=== PATIENT | female | born 1980 | race Caucasian/White ===

== ENCOUNTER 2018-10-16 14:52 | Emergency (ER) | payer OTHER ==
[2018-10-16 14:58] VITALS: BP 126/78; PULSE 72; TEMP 98.4; BMI 29.5
--- NOTE | 2018-10-16 17:36 | PDOC ---
History of Present Illness - General Chief Complaint: Revisit,Wound Recheck Stated Complaint: PAIN Time Seen by Provider: 10/16/18 16:22 History Source: Patient Exam Limitations: No Limitations - History of Present Illness Initial Comments: 10/16/18 17:34 38 year old woman A1 with history of gestational HTN, anemia and keloids presents with blue strings from the vagina and L sided lower abdominal pain after an uncomplicated on 09/24/18. The patient reports that during her C section an IUD was placed. She has bilaterally intermittent lower abdominal pain rated 7/10 that resolved on the R side after 2 weeks, but has remained on the L lower abdomen worse with sitting forward. The patient noted that the pain increased yesterday and went to a max of 9/10. Since the patient has continued to have vaginal spotting and bleeding. Today at 1100 the patient noted blue strings coming from her vagina and multiple blood clots. The patient denied vaginal pain or discharge. The patient denies nausea, vomiting, diarrhea, constipation, dysuria, hematuria, fevers, headaches, chest pain or shortness of breath. She has no other ocmplaints at bedside. Past History - Past Medical History Allergies/Adverse Reactions: Allergies Allergy/AdvReac Type Severity Reaction Status Date / Time No Known Allergies Allergy Verified 10/16/18 14:55 Home Medications: Ambulatory Orders Aspirin [Adult Aspirin] 81 mg PO DAILY 09/23/18 Omeprazole 40 mg PO PRN 09/23/18 Valacyclovir HCl [Valtrex] 500 mg PO BID 09/23/18 Asthma: Yes COPD: No - Surgical History Cholecystectomy: Yes - Suicide/Smoking/Psychosocial Hx Smoking History: Former smoker Have you smoked in the past 12 months: Yes If you are a former smoker, when did you quit?: 10 months ago Information on smoking cessation initiated: No Review of Systems - Review of Systems Able to Perform ROS?: Yes Is the patient limited Swedish proficient: No Constitutional: No: Chills, Diaphoresis, Fever HEENTM: No: Tinnitus Respiratory: No: Cough, Orthopnea, Shortness of Breath Cardiac (ROS): No: Chest Pain, Lightheadedness, Palpitations ABD/GI: No: Constipated, Diarrhea, Nausea, Vomiting : No: Burning, Dysuria, Hematuria, Incontinence Musculoskeletal: No: Back Pain Neurological: No: Headache, Numbness, Tingling Hematologic/Lymphatic: Yes: See HPI, Blood Clots *Physical Exam - Vital Signs Last Vital Signs Temp Pulse Resp BP Pulse Ox 98.4 F 72 18 126/78 100 10/16/18 14:56 10/16/18 14:56 10/16/18 14:56 10/16/18 14:56 10/16/18 14:56 - Physical Exam Comments: 10/16/18 17:32 GENERAL: Awake, alert, and fully oriented, in no acute distress HEAD: No signs of trauma, normocephalic, atraumatic EYES: EOMI, sclera anicteric, conjunctiva clear ENT: oropharynx clear without exudates. Moist mucosa NECK: Normal ROM, supple LUNGS: No distress, speaks full sentences, clear to auscultation bilaterally HEART: Regular rate and rhythm, normal S1 and S2, no murmurs, rubs or gallops, peripheral pulses normal and equal bilaterally. ABDOMEN: Soft, slight tenderness on LLQ, normoactive bowel sounds. No guarding , no rebound. Keloid scarring on the incision site, incision, well healed, dry EXTREMITIES : Normal inspection, Normal range of motion, no edema. No clubbing or cyanosis. NEUROLOGICAL: Cranial nerves II through XII grossly intact. Normal speech, normal gait, no focal sensorimotor deficits SKIN: Warm, Dry, normal turgor, no rashes or lesions noted PELVIC: significant blood clots with expulsion of IUD, long proline blue sutures attached to end of IUD Moderate Sedation - Procedure Monitoring Vital Signs: Procedure Monitoring Vital Signs Temperature 98.4 F 10/16/18 14:56 Pulse Rate 72 10/16/18 14:56 Respiratory Rate 18 10/16/18 14:56 Blood Pressure 126/78 10/16/18 14:56 O2 Sat by Pulse Oximetry (%) 100 10/16/18 14:56 ED Treatment Course - LABORATORY CBC & Chemistry Diagram: 10/16/18 17:54 Medical Decision Making - Medical Decision Making 10/16/18 17:35 38 year old woman A1 with history of gestational HTN, anemia and keloids presents with blue strings from the vagina and L sided lower abdominal pain after an uncomplicated on 09/24/18. The patient reports that during her C section an IUD was placed. She has bilaterally intermittent lower abdominal pain rated 7/10 that resolved on the R side after 2 weeks, but has remained on the L lower abdomen worse with sitting forward. The patient noted that the pain increased yesterday and went to a max of 9/10. Since the patient has continued to have vaginal spotting and bleeding. Today at 1100 the patient noted blue strings coming from her vagina and multiple blood clots. The patient denied vaginal pain or discharge. The patient denies nausea, vomiting, diarrhea, constipation, dysuria, hematuria, fevers, headaches, chest pain or shortness of breath. She has no other ocmplaints at bedside. ED Course: Pelvic exam with removal of IUD Will check cbc for anemia Advised patient contact OBGYN tomorrow AM CBC: within normal limits Patient with apparent IUD failure/misplacement. The patient was informed to obstain from sexual intercourse until evaluated from her OBGYN. As labs are stable and patient notes relief of symptoms with IUD removal. Will have patient see her OBGYN within 1-2 days. Patient stable for discharge. Informed of all lab and imaging results. Given follow up instructions and strict return precautions. Patient expressed understanding and agree to plan. *DC/Admit/Observation/Transfer Diagnosis at time of Disposition: IUD failure, IUD mechanical complication - Discharge Dispostion Disposition: HOME Condition at time of disposition: Stable Decision to Admit order: No - Referrals Referrals: Kade Inman MD [Staff Physician] - - Patient Instructions Additional Instructions: You were seen in the ED for complaints of vaginal clots with extrusion of sutures from the vagina. In the ED you were evaluated with pelvic exam and labwork. You had explusion of the IUD during pelvic exam and your Hb was within normal limits There does not appear to be an acute need for immediate hospitalization. You are advised to follow up with your Primary Care Physician within 1 week. Please call your OBGYN to schedule a follow up appointment within 1-2 days. If you are unable to see your OBGYN within 2 days you have been given a referral to OBGYN and you are advised to return to the ED if you are unable to schedule appropriate follow up. Please refrain from sexual intercourse until assessed by your OBGYN. Return to the ED immediately if you experience worsening vaginal bleeding with clots, worsening abdominal pain, fevers, nausea, vomiting, blood in the urine or stool, shortness of breath or chest pain - Post Discharge Activity
--- NOTE | 2018-10-16 17:46 | PDOC ---
Attending Attestation - Resident Resident Name: Shanna Bond - ED Attending Attestation I have performed the following: I have examined & evaluated the patient, The case was reviewed & discussed with the resident, I agree w/resident's findings & plan - HPI HPI: 10/16/18 17:49 [place] 38 YOF with h/o anemia and gestational HTN. presenting with vaginal bleeding/clots and Abdominal discomfort and blue strings hanging from vagina. s/p C section 09/24, uncomplicated at [facility]. No n/v/d, f/c, cp/sob. No urinary sx or hematuria. - Physicial Exam PE: 10/16/18 17:46 NAD, well appearing, PERRL, EOMI, MMM, nl conjunctiva, anicteric; neck supple. lungs clear, RRR, abdomen soft nontender. FERRER x4. No peripheral edema. normal color for ethnicity, WWP. pelvic exam with resident, with prolene strings from IUD at cervical os. +blood clots in vaginal vault. no tenderness. - Medical Decision Making 10/16/18 17:49 hpi as documented VS wnl CBC with known anemia, no other derangements. pelvic exam with resident, IUD visualized with prolene strings, removed due to bleeding and discomfort. no adnexal tenderness or cervical abnormalities. immediate relief. abdomen soft and NT. avoid intercourse/sex given IUD removed, as precaution for control. but as natural conception Pt to be discharged in stable condition. Patient and family made aware of impression and plan, return precautions discussed (including but not limited to worsening pain or symptoms), fevers, or signs of infection, chest pain, respiratory distress, inability to tolerate oral intake, dehydration, syncope, or neurologic changes). Follow up with PMD and/or OB specialist as recommended, follow up information provided. continue with supportive care, avoid triggers and precipitants. All questions answered to patient's satisfaction and expressed understanding and comfort with this. 10/16/18 18:18
[2018-10-16 18:00] LABS: BASO % 1.3 % (0-2.0); EOS % 3.3 % (0-4.5); HEMATOCRIT 31.5 % (32.4-45.2); HEMOGLOBIN 10.5 GM/dL (10.7-15.3); LYMPH % 33.1 % (8-40); MCH 22.9 pg (25.7-33.7); MCHC 33.3 g/dl (32.0-36.0); MEAN CELL VOLUME 68.8 fl (80-96); MEAN PLT VOLUME 9.1 fl (7.5-11.1); MONO % 11.4 % (3.8-10.2); NEUT % 50.9 % (42.8-82.8); PLATELET COUNT 328 K/MM3 (134-434); RBC 4.59 M/mm3 (3.60-5.2); RDW 23.6 % (11.6-15.6); WHITE BLOOD COUNT 4.1 K/mm3 (4.0-10.0)
[2018-10-16 18:33] LABS: ANISOCYTOSIS 2+
== END 2018-10-16 18:59 | disposition home or self-care (01) ==
LOC: JER 14:52
PROC: 0UPD7HZ Removal of Contraceptive Device from Uterus and Cervix, Via Natural or Artificial Opening (ICD-10-PCS; principal; 2018-10-16)
DX: O90.89 Other complications of the puerperium, not elsewhere classified (principal); T83.89XA Other specified complication of genitourinary prosthetic devices, implants and grafts, initial encounter
CPT/HCPCS: 36415; 85025; 99281-25

== ENCOUNTER 2020-12-15 10:09 | Emergency (ER) | payer OTHER ==
[2020-12-15 10:32] VITALS: BP 147/106; PULSE 88; TEMP 98.8; BMI 33.3
[2020-12-15] MEDS ORDERED: ONDANSETRON 4 MG/2 ML VIAL IVPUSH ONE (11:10)
[2020-12-15] MEDS ORDERED: SODIUM CHLORIDE 0.9% 500 ML INFUS.BAG IV ONE (11:10)
[2020-12-15] MEDS ORDERED: ACETAMINOPHEN 1000 MG/100 ML VIAL (NON FORMULARY) IVPB ONE (11:10)
[2020-12-15] MEDS ORDERED: ACETAMINOPHEN INJECTION 100 ML IVPB ONE (11:27)
[2020-12-15] MEDS ORDERED: ONDANSETRON 4 MG/2 ML VIAL ONE (11:27)
[2020-12-15 12:17] LABS: BASO % 0.8 % (0-2.0); EOS % 0.3 % (0-4.5); HEMATOCRIT 27.7 % (32.4-45.2); HEMOGLOBIN 8.4 GM/dL (10.7-15.3); LYMPH % 14.9 % (8-40); MCHC 30.5 g/dl (32.0-36.0); MEAN CELL VOLUME 57.6 fl (80-96); MEAN PLT VOLUME 8.9 fl (7.5-11.1); MONO % 5.6 % (3.8-10.2); NEUT % 78.4 % (42.8-82.8); PLATELET COUNT 316 K/MM3 (134-434); RDW 19.7 % (11.6-15.6); WHITE BLOOD COUNT 8.3 K/mm3 (4.0-10.0)
[2020-12-15 12:22] LABS: MCH 17.6 pg (25.7-33.7)
[2020-12-15 12:26] LABS: EPI CELLS 11 /uL (0-25.1); HCG,QUALITATIVE URINE Negative; HYALINE CASTS 2 /uL (0-3.1); URINE APPEARANCE CLEAR; URINE BACTERIA 629 /uL (0-1359); URINE BILIRUBIN NEGATIVE (NEGATIVE); URINE COLOR YELLOW; URINE GLUCOSE (UA) NEGATIVE (NEGATIVE); URINE KETONE NEGATIVE (NEGATIVE); URINE LEUK ESTERASE NEGATIVE (NEGATIVE); URINE NITRITE NEGATIVE (NEGATIVE); URINE PROTEIN TRACE (NEGATIVE); URINE RBC 11 /uL (0-23.9); URINE UROBILINOGEN 0.2 mg/dL (0.2-1.0); URINE WBC 11 /uL (0-25.8)
[2020-12-15 12:35] LABS: POTASSIUM 4.4 mmol/L (3.5-5.1)
[2020-12-15 12:38] LABS: CALCIUM 9.1 mg/dL (8.5-10.1)
[2020-12-15 12:39] LABS: ALBUMIN 3.8 g/dl (3.4-5.0); BLOOD UREA NITROGEN 10.1 mg/dL (7-18)
[2020-12-15 12:42] LABS: CREATININE 0.8 mg/dL (0.55-1.3)
[2020-12-15 12:43] LABS: TOT PROT 7.4 g/dl (6.4-8.2)
[2020-12-15 12:48] LABS: BILIRUBIN,TOTAL 0.9 mg/dL (0.2-1)
[2020-12-15 12:53] LABS: ANISOCYTOSIS 3+; MACROCYTOSIS 0; OVALOCYTE 1+; PLATELET ESTIMATE NORMAL
== END 2020-12-15 15:03 | disposition home or self-care (01) ==
LOC: JER 10:09 → JERFT 10:09
PROC: 3E0333Z Introduction of Anti-inflammatory into Peripheral Vein, Percutaneous Approach (ICD-10-PCS; principal; 2020-12-15)
PROC: 3E033GC Introduction of Other Therapeutic Substance into Peripheral Vein, Percutaneous Approach (ICD-10-PCS; 2020-12-15)
DX: R10.32 Left lower quadrant pain (principal)
CPT/HCPCS: 36415; 74176-TC; 80053; 81003; 84703; 85025; 87086; 99284-25; J0131

== ENCOUNTER 2021-03-15 09:38 | Emergency (ER) | payer OTHER ==
[2021-03-15 09:51] VITALS: BP 141/82; PULSE 84; TEMP 98.6; BMI 31.8
[2021-03-15] MEDS ORDERED: FAMOTIDINE 20 MG TABLET PO ONE (10:47)
[2021-03-15 10:50] LABS: EPI CELLS 27 /uL (0-25.1); HYALINE CASTS 2 /uL (0-3.1); PH,URINE 6.5 (5.0-8.0); URINE APPEARANCE CLOUDY; URINE BACTERIA 1685 /uL (0-1359); URINE BILIRUBIN NEGATIVE (NEGATIVE); URINE COLOR YELLOW; URINE GLUCOSE (UA) NEGATIVE (NEGATIVE); URINE KETONE TRACE (NEGATIVE); URINE LEUK ESTERASE NEGATIVE (NEGATIVE); URINE NITRITE NEGATIVE (NEGATIVE); URINE PROTEIN 1+ (NEGATIVE); URINE RBC 36 /uL (0-23.9); URINE WBC 14 /uL (0-25.8)
[2021-03-15] MEDS ORDERED: FAMOTIDINE 20 MG TABLET ONE (10:51)
== END 2021-03-15 12:30 | disposition home or self-care (01) ==
LOC: JER 09:38
DX: R10.2 Pelvic and perineal pain (principal)
CPT/HCPCS: 76817-TC; 81003; 82962; 87086; 99284-25

== ENCOUNTER 2021-04-06 15:27 | Inpatient (IN) | payer OTHER ==
[2021-04-06] MEDS ORDERED: SODIUM CHLORIDE 1,000 ML IV STA (17:05)
[2021-04-06 18:06] LABS: BASO % 0.4 % (0-2.0); EOS % 0.2 % (0-4.5); HEMATOCRIT 38.8 % (32.4-45.2); HEMOGLOBIN 13.2 GM/dL (10.7-15.3); LYMPH % 7.2 % (8-40); MCH 25.9 pg (25.7-33.7); MEAN CELL VOLUME 76.3 fl (80-96); MEAN PLT VOLUME 8.6 fl (7.5-11.1); MONO % 3.9 % (3.8-10.2); NEUT % 88.3 % (42.8-82.8); PLATELET COUNT 218 10^3/uL (134-434); RBC 5.09 M/mm3 (3.60-5.2); RDW 14.1 % (11.6-15.6); WHITE BLOOD COUNT 16.2 K/mm3 (4.0-10.0)
[2021-04-06] MEDS ORDERED: ONDANSETRON 4 MG/2 ML VIAL IVPUSH ONE (18:09)
[2021-04-06] MEDS ORDERED: ACETAMINOPHEN 1000 MG/100 ML VIAL (NON FORMULARY) IVPB ONE (18:09)
[2021-04-06] MEDS ORDERED: ONDANSETRON 4 MG/2 ML VIAL ONE (18:11)
[2021-04-06] MEDS ORDERED: ACETAMINOPHEN INJECTION 100 ML IVPB ONE (18:11)
[2021-04-06 18:13] LABS: INR 0.92 (0.83-1.09); PROTHROMBIN TIME (PATIENT) 11.3 SEC (9.7-13.0)
[2021-04-06 18:32] LABS: ALBUMIN 3.6 g/dl (3.4-5.0); BLOOD UREA NITROGEN 6.9 mg/dL (7-18); CALCIUM 9.3 mg/dL (8.5-10.1)
[2021-04-06 18:35] LABS: CREATININE 0.6 mg/dL (0.55-1.3)
[2021-04-06 18:37] LABS: BILIRUBIN,TOTAL 0.3 mg/dL (0.2-1); TOT PROT 7.5 g/dl (6.4-8.2)
[2021-04-06 18:59] LABS: EPI CELLS 20 /uL (0-25.1); HYALINE CASTS 2 /uL (0-3.1); PH,URINE 5.5 (5.0-8.0); URINE APPEARANCE CLEAR; URINE BACTERIA 1320 /uL (0-1359); URINE BILIRUBIN NEGATIVE (NEGATIVE); URINE COLOR YELLOW; URINE GLUCOSE (UA) NEGATIVE (NEGATIVE); URINE KETONE 2+ (NEGATIVE); URINE LEUK ESTERASE NEGATIVE (NEGATIVE); URINE NITRITE NEGATIVE (NEGATIVE); URINE PROTEIN 1+ (NEGATIVE); URINE RBC 46 /uL (0-23.9); URINE UROBILINOGEN 0.2 mg/dL (0.2-1.0); URINE WBC 26 /uL (0-25.8)
[2021-04-06] MEDS ORDERED: morphine CARPU-JECT 2 MG/1 ML DISP.SYRIN IVPUSH ONE ×2 (19:40→21:18)
[2021-04-06] MEDS ORDERED: MORPHINE SULFATE 2 MG/ML VIAL ONE ×2 (19:53→21:29)
[2021-04-06] MEDS ORDERED: CEFTRIAXONE 1 GM in DEXTROSE 5%-WATER - 100 ML IVPB ONE (21:05)
[2021-04-06] MEDS ORDERED: LACTATED RINGERS SOLUTION 1,000 ML/1,000 ML INFUS.BAG IV SCH (21:15)
[2021-04-06] MEDS ORDERED: CEFTRIAXONE 1 GM/50 ML BAG ONE (21:18)
[2021-04-07] MEDS ORDERED: ACETAMINOPHEN 1000 MG/100 ML VIAL (NON FORMULARY) IVPB PRN (02:33)
[2021-04-07 03:12] VITALS: BMI 34.7
[2021-04-07 07:53] LABS: BASO % 0.8 % (0-2.0); EOS % 0.5 % (0-4.5); HEMATOCRIT 34.5 % (32.4-45.2); HEMOGLOBIN 11.6 GM/dL (10.7-15.3); LYMPH % 14.7 % (8-40); MCH 25.9 pg (25.7-33.7); MCHC 33.7 g/dl (32.0-36.0); MEAN PLT VOLUME 8.6 fl (7.5-11.1); MONO % 7.6 % (3.8-10.2); NEUT % 76.4 % (42.8-82.8); PLATELET COUNT 200 10^3/uL (134-434); RBC 4.49 M/mm3 (3.60-5.2); RDW 13.9 % (11.6-15.6); WHITE BLOOD COUNT 11.2 K/mm3 (4.0-10.0)
[2021-04-07 08:19] LABS: CALCIUM 8.8 mg/dL (8.5-10.1); MAGNESIUM 1.8 mg/dL (1.8-2.4)
[2021-04-07 08:22] LABS: CREATININE 0.6 mg/dL (0.55-1.3); PHOSPHOROUS 4.1 mg/dL (2.5-4.9)
[2021-04-07 08:24] LABS: BILIRUBIN,TOTAL 0.5 mg/dL (0.2-1)
[2021-04-07] MEDS ORDERED: SODIUM CHLORIDE 1,000 ML IV SCH (09:15)
[2021-04-07] MEDS ORDERED: CEFTRIAXONE 1 GM in DEXTROSE 5%-WATER - 50 ML IVPB SCH (10:00)
[2021-04-07] MEDS ORDERED: DEXTROSE 5%-WATER - 50 ML IVPB ONE (10:12)
[2021-04-07] MEDS ORDERED: cefTRIAXone SODIUM 1 GM VIAL ONE (10:12)
[2021-04-07 14:41] VITALS: BP 132/80; PULSE 71; TEMP 97.6
[2021-04-07] MEDS ORDERED: DOCUSATE SODIUM 100 MG CAPSULE (FP) PO SCH (22:00)
[2021-04-08] MEDS ORDERED: PRENATAL VITAMINS W/ FOLIC ACID TABLET (FP) PO SCH (10:00)
== END 2021-04-07 15:42 | disposition home or self-care (01) | DRG 566 ==
LOC: JER 15:27 → JERBED 20:55 → J7W 04-07 02:07
PROVIDERS: ADMIT Internal Medicine; ATTEND Nurse Practitioner Acute Care
DX: O23.01 Infections of kidney in pregnancy, first trimester (principal); N13.6 Pyonephrosis; O24.410 Gestational diabetes mellitus in pregnancy, diet controlled; Z3A.13 13 weeks gestation of pregnancy; D50.9 Iron deficiency anemia, unspecified; Z98.84 Bariatric surgery status
CPT/HCPCS: 36415; 76775-TC; 76801-TC; 80053; 81003; 83735; 84100; 84702; 85025; 85610; 87040; 87086; 93005; 93010; 99285-25; C9803; J0131; U0003; U0005

== ENCOUNTER 2021-10-05 06:30 | Inpatient (IN) | payer OTHER ==
[2021-10-05 07:47] VITALS: BMI 37.3
[2021-10-05 09:19] LABS: CORD HCO3 22.2 mmHg (20-29); CORD PCO2 58.8 mmHg (30-78); CORD pH 7.195 (7.14-7.44)
[2021-10-05 09:26] LABS: CORD BASE EXCESS -2.5 mmol/L (0-2); CORD HCO3 23.3 mmHg (20-29); CORD pH 7.342 (7.14-7.44)
[2021-10-06 08:56] LABS: BASO % 0.4 % (0-2.0); EOS % 0.6 % (0-4.5); HEMATOCRIT 26.9 % (32.4-45.2); HEMOGLOBIN 9.2 GM/dL (10.7-15.3); LYMPH % 11.5 % (8-40); MCH 27.5 pg (25.7-33.7); MCHC 34.3 g/dl (32.0-36.0); MEAN CELL VOLUME 80.2 fl (80-96); MEAN PLT VOLUME 9.2 fl (7.5-11.1); MONO % 9.4 % (3.8-10.2); NEUT % 78.1 % (42.8-82.8); PLATELET COUNT 115 10^3/uL (134-434); RBC 3.35 M/mm3 (3.60-5.2); RDW 14.9 % (11.6-15.6)
[2021-10-07 20:12] VITALS: PULSE 78
[2021-10-08 08:04] LABS: BASO % 0.4 % (0-2.0); EOS % 1.8 % (0-4.5); HEMATOCRIT 22.2 % (32.4-45.2); HEMOGLOBIN 7.7 GM/dL (10.7-15.3); LYMPH % 23.2 % (8-40); MCH 27.9 pg (25.7-33.7); MCHC 34.9 g/dl (32.0-36.0); MEAN CELL VOLUME 79.9 fl (80-96); MEAN PLT VOLUME 8.9 fl (7.5-11.1); MONO % 6.7 % (3.8-10.2); NEUT % 67.9 % (42.8-82.8); PLATELET COUNT 126 10^3/uL (134-434); RBC 2.78 M/mm3 (3.60-5.2); RDW 15.1 % (11.6-15.6)
[2021-10-08 10:19] VITALS: BP 126/75; TEMP 97.6
== END 2021-10-08 14:55 | disposition home or self-care (01) | DRG 540 ==
LOC: JLDR 06:30 → J3W 11:00
PROVIDERS: ADMIT Obstetrics & Gynecology; ATTEND Obstetrics & Gynecology
PROC: 10D00Z1 Extraction of Products of Conception, Low, Open Approach (ICD-10-PCS; principal; 2021-10-05)
PROC: 0UL70ZZ Occlusion of Bilateral Fallopian Tubes, Open Approach (ICD-10-PCS; 2021-10-05)
DX: O34.211 Maternal care for low transverse scar from previous cesarean delivery (principal); Z3A.39 39 weeks gestation of pregnancy; Z37.0 Single live birth; Z30.2 Encounter for sterilization
CPT/HCPCS: 36415; 36600; 80048; 82803; 85025; 85610; 85730; 86780; 86850; 86900; 86901; 88302-TC; 88307-TC; C9803; J0131; U0003; U0005